=== PATIENT | male | born 1940 | race American Indian/Alaskan Native ===

== ENCOUNTER 2017-08-21 08:54 | Emergency (ER) | payer MEDICARE ==
[2017-08-21 09:06] VITALS: BP 162/87
[2017-08-21] MEDS ORDERED: DELTASONE PO ONE (12:09)
[2017-08-21] MEDS ORDERED: TORADOL IM ONE (12:09)
--- NOTE | 2017-08-21 12:09 | Emergency Department Report ---
ED Rash HPI - HPI Chief Complaint: Skin Rash Stated Complaint: RAH ON BODY Time Seen by Provider: 08/21/17 11:15 Duration: 1 Day Location: Chest (left chest), Back (lt upper back), Upper Extremities (left upper extremity) Suspected Cause: Unknown Rash Symptoms: Yes Blistering (reports painful blisters to left arm, left chest circling around his upper back. She is painful and feels like burning ), No Itching, No Facial Swelling, No Tongue/Oral Swelling, No Breathing Difficulties , No Choking Sensation, No Wheezing/Dyspnea, No Peeling, No Fever, No Lightheaded, No Malaise, No Myalgias Severity: severe (8 out of 10) Other History: She reports that he has rash to his left upper chest, left arm, left upper back that is red and painful. Pain is burning . No over-the- counter medication taken. Denies any fever or chills. Denies any cough, stridor, wheezing, swelling of tongue, difficulty swallowing or breathing. Denies any nasal congestion. Denies any swelling of lip. ED Review of Systems ROS: Stated complaint: RAH ON BODY Other details as noted in HPI Comment: All other systems reviewed and negative Constitutional: no symptoms reported Eyes: denies: eye pain, eye discharge ENT: denies: ear pain, throat pain, dental pain, congestion Respiratory: no symptoms reported Cardiovascular: denies: chest pain, palpitations, dyspnea on exertion, edema, syncope, paroxysmal nocturnal dyspnea Gastrointestinal: denies: abdominal pain, nausea, vomiting, diarrhea Musculoskeletal: denies: back pain, arthralgia, myalgia Skin: rash. denies: pruritus Neurological: denies: headache, weakness, numbness, paresthesias, confusion, abnormal gait, vertigo ED Past Medical Hx - Past Medical History Previous Medical History?: Yes Hx Hypertension: Yes Hx Congestive Heart Failure: No Hx Diabetes: Yes (IDDM 20 YEARS) Hx Deep Vein Thrombosis: No Hx Asthma: No Hx COPD: No Hx Tuberculosis: No - Surgical History Past Surgical History?: Yes Hx Pacemaker: No Hx Internal Defibrillator: No Additional Surgical History: Left foot - Family History Family history: no significant - Social History Smoking Status: Former Smoker Substance Use Type: None - Medications Home Medications: Home Medications Medication Instructions Recorded Confirmed Last Taken Type Aspirin [Aspirin BABY CHEW TAB] 81 mg PO DAILY 06/14/14 03/26/15 06/26/14 History Insulin Aspart [NovoLOG Flexpen] 10 units SUB-Q AC 06/14/14 03/26/15 06/26/14 14 :30 History Gabapentin [Neurontin] 900 mg PO BID #60 capsule 07/07/14 03/26/15 Unknown Rx Lisinopril [Zestril TAB] 5 mg PO QDAY #30 tablet 07/07/14 03/26/15 Unknown Rx Insulin Glargine [Lantus VIAL] 12 units SUB-Q QPM 03/26/15 03/26/15 Unknown History Acetaminophen/Codeine [Tylenol 1 tab PO Q6H PRN 3 Days #12 tab 08/21/17 Unknown Rx /Codeine # 3 tab] Lidocaine [Lidoderm] 1 each TP Q12H 5 Days #10 08/21/17 Unknown Rx adh..patch Valacyclovir HCl [Valtrex] 1,000 mg PO TID 7 Days #21 tablet 08/21/17 Unknown Rx Rash Exam - Exam General: Vital signs noted. No distress. Alert and acting appropriately. This is a 77-year-old male well-nourished well-developed in no acute distress HEENT: No Periorbital Edema, No Conjuctival Injection, No Chemosis, No Perioral Edema, No Tongue Edema, No Uvular Edema, No Compromised Airway, No Drooling Lungs: Yes Good Air Exchange, No Wheezes, No Ronchi, No Stridor, No Cough, No Labored Respirations, No Retractions, No Use of Accessory Muscles, No Other Abnormal Lung Sounds Heart: Yes Regular, No Murmur Skin: Yes Tenderness (tender to palpate at rest sites.), Yes Erythema (left upper chest, left upper back posterior thorax, left mid axilla lateral to thorax. Left posterior arm), Yes Other (Pt with vesicles that are erythema, tender to palpate.), No Urticarial Rash, No Maculopapular Rash, No Morbilliform rash, No Bulla(e), No Excoriations, No Weeping, No Encrustations Other: Positive: Abdomen Normal, Neurologic Normal, Musculoskeletal Normal ED Course Vital Signs 08/21/17 09:03 Temperature 98.3 F Pulse Rate 89 Respiratory 20 Rate Blood Pressure 162/87 O2 Sat by Pulse 100 Oximetry - Reevaluation(s) Reevaluation #1: 08/21/17 13:14 Patient given Deltasone 60 mg by mouth and Toradol 30 mg IM in emergency room. ED Medical Decision Making - Medical Decision Making ED course: He is in here complaining of rash times one day that it's painful with burning sensation to his left posterior thorax that upper back, left upper chest and left upper arm. Physical findings for erythema, vesicles and clusters to affect upper chest, left upper posterior thorax at back, left mid thorax at mid axillary line and left posterior arm. Some vesicles are coalescent. Areas tender to palpate. Discussed patient that he has shingles and precautions that he needed to take. He said his had shingles 3 months ago. Patient given Huang 30 mg IM an unknown 60 mg by mouth in emergency room. Discharge home with prescription for Lidoderm patch, Tylenol No. 3 and Valtrex. A second that he needs to follow up with his primary care physician which she does have one on Thursday. He voiced understanding of discharge instructions treatment plan and diagnosis and discharge from emergency room in stable condition. Critical care attestation.: If time is entered above; I have spent that time in minutes in the direct care of this critically ill patient, excluding procedure time. ED Disposition Clinical Impression: Painful skin lesion Shingles outbreak Qualifiers: Herpes zoster complications: without complications Qualified Code(s): B02.9 - Zoster without complications Disposition: DC-01 TO HOME OR SELFCARE Is pt being admited?: No Does the pt Need Aspirin: No Condition: Stable Instructions: Herpes Zoster (ED) Additional Instructions: Please keep affected area clean and dry Thigh Lidoderm skin patch to affected areas this will help to relieve pain Take Tylenol No. 3 as prescribed but please do not drive or operate heavy machinery while taking this medication as a cause drowsiness Practice good hand hygiene Take Valtrex as prescribed Follow up with your primary care physician in 3 days Prescriptions: Acetaminophen/Codeine [Tylenol /Codeine # 3 tab] 1 tab PO Q6H PRN 3 Days #12 tab PRN Reason: Pain Lidocaine [Lidoderm] 1 each TP Q12H 5 Days #10 adh..patch Valacyclovir HCl [Valtrex] 1,000 mg PO TID 7 Days #21 tablet Referrals: PRIMARY CAREMD [Primary Care Provider] - 08/24/17
== END 2017-08-21 13:34 | disposition home or self-care (01) ==
LOC: ED 08:54
DX: B02.9 Zoster without complications (principal); I10 Essential (primary) hypertension; E11.9 Type 2 diabetes mellitus without complications; Z87.891 Personal history of nicotine dependence
CPT/HCPCS: 96372; 99282; J1885; J7512